=== PATIENT | female | born 1960 ===

== ENCOUNTER 2017-04-07 14:18 | Emergency (ER) | payer SELFPAY ==
--- NOTE | 2017-04-07 14:29 | C.PDOC ---
History Of Present Illness Patient is a 56 year old female, borderline hypertensive, who was brought to the ER after near syncopal episode. Patient was well yesterday, and today awoke feeling nauseous, dizzy, and as if she needed to move her bowels. States her stomach felt somewhat gassy/distended as well. Patient then felt cramping in her hands and feet, and felt faint, so family brought her here. There was no syncope or loss of consciousness. Patient continues to have cramping in her hands. Time Seen by Provider: 04/07/17 14:25 History Per: Patient, Family (, son) History/Exam Limitations: no limitations Onset/Duration Of Symptoms: Hrs Current Symptoms Are (Timing): Still Present Past Medical History Reviewed: Historical Data, Nursing Documentation, Vital Signs Vital Signs: Last Vital Signs Temp 98.4 F 04/07/17 14:55 Pulse 75 04/07/17 16:55 Resp 18 04/07/17 16:55 BP 129/69 04/07/17 16:55 Pulse Ox 98 04/07/17 17:03 - Medical History PMH: HTN Surgical History: Denies: Appendectomy, Pacemaker Family History: States: Unknown Family Hx - Social History Hx Tobacco Use: No Hx Alcohol Use: No Hx Substance Use: No - Immunization History Hx Tetanus Toxoid Vaccination: No Hx Influenza Vaccination: No Hx Pneumococcal Vaccination: No Review Of Systems Except As Marked, All Systems Reviewed And Found Negative. Constitutional: Negative for: Fever Cardiovascular: Positive for: Light Headedness Respiratory: Negative for: Shortness of Breath Gastrointestinal: Positive for: Nausea, Other (bloated). Negative for: Vomiting Musculoskeletal: Positive for: Other (Hands and feet cramping) Neurological: Positive for: Dizziness Physical Exam - Physical Exam Appears: Non-toxic, No Acute Distress Skin: Dry, Pale, Other (ice cold to touch) Head: Atraumatic, Normacephalic Eye(s): bilateral: Normal Inspection (conjunctiva appear normal ), PERRL, EOMI Nose: Normal Chest: Symmetrical Cardiovascular: Rhythm Regular Respiratory: Normal Breath Sounds, No Accessory Muscle Use, No Rhonchi, No Wheezing Gastrointestinal/Abdominal: Normal Exam, Soft, No Tenderness, No Distention Back: Normal Inspection, No CVA Tenderness, No Vertebral Tenderness Extremity: Other (Hand and feet with bilateral contractures) Pulses: Left Radial: Normal, Right Radial: Normal Neurological/Psych: Oriented x3, Normal Speech ED Course And Treatment - Laboratory Results Result Diagrams: 04/07/17 16:14 04/07/17 16:14 O2 Sat by Pulse Oximetry: 98 (RA) Pulse Ox Interpretation: Normal Medical Decision Making Medical Decision Making: Initial Plan: * CMP * Troponin I * CBC * Urinalysis * Reasessment Labs reviewed, troponin nl. Hypo K, Potasium given. PT awake, alert, no distress, no fever, plan to d/c home with PMD f/u. Disposition Counseled Patient/Family Regarding: Studies Performed, Diagnosis, Need For Followup - Disposition Disposition Time: 18:13 Condition: STABLE Instructions: Hyperventilation (ED) Forms: Gen Discharge Inst [place], [facility] ([place]) - POA Present On Arrival: None - Clinical Impression Clinical Impression: Dizziness, Near syncope, Hyperventilation - Scribe Statement The provider has reviewed the documentation as recorded by the Bladimir Bee Provider Attestation: All medical record entries made by the Bladimir were at my direction and personally dictated by me. I have reviewed the chart and agree that the record accurately reflects my personal performance of the history, physical exam, medical decision making, and the department course for this patient. I have also personally directed, reviewed, and agree with the discharge instructions and disposition.
[2017-04-07 14:46] VITALS: BMI 24.7
[2017-04-07 14:55] VITALS: TEMP 98.4
[2017-04-07 16:20] LABS: BASO # 0.1 K/uL (0.0-0.2); BASO % 0.3 % (0.0-2.0); EOS # 0.1 K/uL (0.0-0.7); HEMOGLOBIN 15.5 g/dL (11.0-16.0); LYMPH # 2.1 K/uL (1.0-4.3); LYMPH % 14.1 % (20.0-40.0); MEAN CELL VOLUME 88.9 fL (81.0-99.0); MEAN CORPUSCULAR HEMOGLOBIN 29.8 pg (27.0-31.0); MEAN CORPUSCULAR HGB CONC 33.5 g/dL (33.0-37.0); MEAN PLATELET VOLUME 7.9 fL (7.2-11.7); MONO # 0.9 K/uL (0.0-0.8); MONO % 5.7 % (0.0-10.0); NEUT % 78.9 % (50.0-75.0); RBC 5.22 Mil/uL (3.80-5.20); RED CELL DISTRIBUTION WIDTH 12.8 % (11.5-14.5); WHITE BLOOD COUNT 15.2 K/uL (4.8-10.8)
[2017-04-07 16:38] LABS: ALB/GLOB RATIO 1.1 (1.0-2.1); ALBUMIN 4.6 g/dL (3.5-5.0); ALT/SGPT 33 U/L (9-52); AST/SGOT 37 U/L (14-36); BLOOD UREA NITROGEN 14 mg/dL (7-17); CALCIUM 9.4 mg/dl (8.6-10.4); GFR AFRICAN-AMERICAN > 60; GFR NON-AFRICAN AMERICAN > 60
[2017-04-07] MEDS ORDERED: Sodium Chloride 0.9% 500 ML IV ONE ×2 (16:48→17:19)
[2017-04-07 16:51] LABS: SQUAMOUS EPITHIAL 3 /hpf (0-5); URINE BILIRUBIN NEGATIVE (NEGATIVE); URINE BLOOD NEGATIVE (NEGATIVE); URINE CLARITY Hazy (Clear); URINE COLOR Yellow (YELLOW); URINE GLUCOSE (UA) NORMAL (Normal); URINE LEUKOCYTE ESTERASE TRACE Leu/uL (Negative); URINE NITRATE NEGATIVE (NEGATIVE); URINE PROTEIN 1+ mg/dL (NEGATIVE); URINE UROBILINOGEN NORMAL mg/dL (0.2-1.0)
[2017-04-07 17:15] VITALS: RESP 18
[2017-04-07] MEDS ORDERED: Potassium Chloride 20 mEq ER Tab PO STA (18:16)
[2017-04-07] MEDS ORDERED: Potassium Chloride 20 mEq ER Tab PO ONE (18:21)
[2017-04-07 18:37] VITALS: BP 140/80; PULSE 78; O2SAT 100
== END 2017-04-07 18:38 | disposition home or self-care (01) ==
LOC: C.ER 14:18
DX: R55 Syncope and collapse (principal); R42 Dizziness and giddiness; R06.4 Hyperventilation; I10 Essential (primary) hypertension
CPT/HCPCS: 80053; 81001; 84484; 85025; 99285; J7040

== ENCOUNTER 2017-04-11 13:28 | Emergency (ER) | payer SELFPAY ==
[2017-04-11 13:29] VITALS: BMI 24.7
[2017-04-11 14:23] VITALS: RESP 20
[2017-04-11 15:20] LABS: BASO # 0.1 K/uL (0.0-0.2); BASO % 0.8 % (0.0-2.0); EOS # 0.2 K/uL (0.0-0.7); EOS % 1.9 % (0.0-4.0); LYMPH # 2.1 K/uL (1.0-4.3); LYMPH % 25.3 % (20.0-40.0); MEAN CELL VOLUME 87.5 fL (81.0-99.0); MEAN CORPUSCULAR HEMOGLOBIN 30.8 pg (27.0-31.0); MEAN CORPUSCULAR HGB CONC 35.2 g/dL (33.0-37.0); MEAN PLATELET VOLUME 7.7 fL (7.2-11.7); MONO # 0.6 K/uL (0.0-0.8); MONO % 6.9 % (0.0-10.0); NEUT # 5.5 K/uL (1.8-7.0); NEUT % 65.1 % (50.0-75.0); RBC 4.56 Mil/uL (3.80-5.20); RED CELL DISTRIBUTION WIDTH 12.4 % (11.5-14.5); WHITE BLOOD COUNT 8.5 K/uL (4.8-10.8)
[2017-04-11 15:44] LABS: ALB/GLOB RATIO 1.2 (1.0-2.1); ALBUMIN 4.1 g/dL (3.5-5.0); ALT/SGPT 36 U/L (9-52); AST/SGOT 43 U/L (14-36); BLOOD UREA NITROGEN 13 mg/dL (7-17); CALCIUM 9.1 mg/dl (8.6-10.4); GFR AFRICAN-AMERICAN > 60; GFR NON-AFRICAN AMERICAN > 60
--- NOTE | 2017-04-11 16:06 | C.PDOC ---
History Of Present Illness 56 y/o female presents to the ER complaining of mild headache. Patient reports that she was seen in [place] ER several days ago and her potassium levels were low. Patient would like to have repeat bloodwork to check her potassium levels. Patient denies fever, cough, chest pain, and SOB. Chief Complaint (Nursing): Abnormal Labs History Per: Patient History/Exam Limitations: no limitations Onset/Duration Of Symptoms: Days Current Symptoms Are (Timing): Still Present Severity: Moderate Past Medical History Reviewed: Historical Data, Nursing Documentation, Vital Signs Vital Signs: Last Vital Signs Temp 98.4 F 04/11/17 16:15 Pulse 82 04/11/17 16:15 Resp 20 04/11/17 16:15 BP 167/72 H 04/11/17 16:15 Pulse Ox 98 04/11/17 20:35 - Medical History PMH: HTN Surgical History: Denies: Appendectomy, Pacemaker Family History: States: No Known Family Hx - Social History Hx Tobacco Use: No Hx Alcohol Use: No Hx Substance Use: No - Immunization History Hx Tetanus Toxoid Vaccination: No Hx Influenza Vaccination: No Hx Pneumococcal Vaccination: No Review Of Systems Except As Marked, All Systems Reviewed And Found Negative. Constitutional: Negative for: Fever, Chills Cardiovascular: Negative for: Chest Pain Respiratory: Negative for: Cough, Shortness of Breath Neurological: Positive for: Headache (mild headache) Physical Exam - Physical Exam Appears: Non-toxic, No Acute Distress Skin: Normal Color, Warm Head: Atraumatic, Normacephalic Eye(s): bilateral: Normal Inspection Nose: Normal Oral Mucosa: Moist Neck: Supple Chest: Symmetrical Cardiovascular: Rhythm Regular Respiratory: Normal Breath Sounds, No Accessory Muscle Use, No Rales, No Rhonchi , No Wheezing Extremity: Normal ROM Neurological/Psych: Oriented x3, Normal Speech, Normal Motor, Normal Sensation ED Course And Treatment - Laboratory Results Result Diagrams: 04/11/17 15:13 04/11/17 15:13 O2 Sat by Pulse Oximetry: 98 (RA) Pulse Ox Interpretation: Normal Progress Note: Patient has been discharged and told to follow up with PMD in 2- 3 days. Disposition - Disposition Referrals: Roselyn Jackson, [Non-Staff] - Disposition: HOME/ ROUTINE Disposition Time: 15:45 Condition: GOOD Additional Instructions: Thank you for letting us take care of you today. The emergency medical care you received today was directed at your acute symptoms. If you were prescribed any medication, please fill it and take as directed. It may take several days for your symptoms to resolve. Return to the Emergency Department if your symptoms worsen, do not improve, or if you have any other problems. Please contact your doctor or call one of the physicians/clinics you have been referred to that are listed on the Patient Visit Information form that is included in your discharge packet. Bring any paperwork you were given at discharge with you along with any medications you are taking to your follow up visit. Our treatment cannot replace ongoing medical care by a primary care provider (PCP) outside of the emergency department. Thank you for allowing the [facility] team to be part of your care today. Follow up with your doctor in 2-3 days for re-evaluation and further management. Instructions: Headache, Adult Forms: [place] - Clinical Impression Clinical Impression: Headache - Scribe Statement The provider has reviewed the documentation as recorded by the Bladimir Bryson Provider Attestation: All medical record entries made by the Bladimir were at my direction and personally dictated by me. I have reviewed the chart and agree that the record accurately reflects my personal performance of the history, physical exam, medical decision making, and the department course for this patient. I have also personally directed, reviewed, and agree with the discharge instructions and disposition.
[2017-04-11 16:16] VITALS: BP 167/72; PULSE 82; TEMP 98.4
[2017-04-11 20:30] VITALS: O2SAT 98
== END 2017-04-11 16:27 | disposition home or self-care (01) ==
LOC: C.ER 13:28
DX: R51 Headache (principal)